=== PATIENT | female | born 1955 | race Caucasian/White ===

== ENCOUNTER 2017-04-01 12:04 | Emergency (ER) | payer OTHER ==
[2017-04-01 12:19] VITALS: BP 115/61
--- NOTE | 2017-04-01 12:44 | UC ---
Dental HPI - HPI Summary HPI Summary: right lower dental pain 2nd molar, for 2 days this morning pain is radiating into ear and has a sensation of vertigo with movement with movement - History of Current Complaint Chief Complaint: UCDentalProblem Stated Complaint: DENTAL PAIN Time Seen by Provider: 04/01/17 12:36 Hx Obtained From: Patient ?: No Onset/Duration: Sudden Onset, Lasting Days - 2, Worse Since - this morning Severity: Severe Pain Intensity: 8 Pain Scale Used: 0-10 Numeric Aggravating: Nothing Alleviating: Nothing - has tried aleve without relief Related History: Previous Dental Care on Same Tooth - Allergies/Home Medications Allergies/Adverse Reactions: Allergies Allergy/AdvReac Type Severity Reaction Status Date / Time Penicillins Allergy Intermediate migraine Verified 04/01/17 12:19 Acetaminophen [From Percocet] Allergy Mild migraine Verified 04/01/17 12:19 Oxycodone [From Percocet] Allergy Mild migraine Verified 04/01/17 12:19 Sumatriptan [From Imitrex] Allergy Mild migraine Verified 04/01/17 12:19 Venlafaxine [From Effexor] AdvReac Intermediate Nausea Verified 04/01/17 12:19 PMH/Surg Hx/FS Hx/Imm Hx Previously Healthy: Yes Endocrine History: Dyslipidemia Psychological History: Depression Other Psychological History: insomnia - Surgical History Surgical History: Yes Surgery Procedure, Year, and Place: ovary removed 2007 - Family History Known Family History: Positive: None - Social History Occupation: Employed Full-time Lives: With Family Alcohol Use: Occasionally Substance Use Type: None Smoking Status (MU): Former Smoker When Did the Patient Quit Smoking/Using Tobacco: quit 8 years ago Review of Systems Constitutional: Negative Skin: Negative Eyes: Negative ENT: Negative, Dental Pain - right lower 2nd molar pain, Ear Ache - right Respiratory: Negative Cardiovascular: Negative Gastrointestinal: Negative Genitourinary: Negative Motor: Negative Neurovascular: Negative Musculoskeletal: Negative Neurological: Negative Psychological: Negative All Other Systems Reviewed And Are Negative: Yes Physical Exam Triage Information Reviewed: Yes Appearance: Well-Appearing, No Pain Distress, Well-Nourished Vital Signs: Initial Vital Signs Temp 98.9 F 04/01/17 12:15 Pulse 76 04/01/17 12:15 Resp 18 04/01/17 12:15 BP 115/61 04/01/17 12:15 Pulse Ox 99 04/01/17 12:15 Vital Signs Reviewed: Yes Eye Exam: Normal Eyes: Positive: Conjunctiva Clear ENT Exam: Normal ENT: Positive: Normal ENT inspection, Hearing grossly normal, Pharynx normal, TMs normal. Negative: Nasal congestion, Nasal drainage, Trismus, Muffled/ hoarse voice Dental Exam: Normal Dental: Positive: Percussion Tenderness @ - 2nd molar right lower side of mouth Neck exam: Normal Neck: Positive: Supple, Nontender, No Lymphadenopathy Respiratory Exam: Normal Respiratory: Positive: Chest non-tender, Lungs clear, Normal breath sounds, No respiratory distress, No accessory muscle use Cardiovascular Exam: Normal Cardiovascular: Positive: RRR, No Murmur, Pulses Normal, Brisk Capillary Refill Musculoskeletal Exam: Normal Musculoskeletal: Positive: Strength Intact, ROM Intact, No Edema Neurological Exam: Normal Neurological: Positive: Alert, Muscle Tone Normal Psychological Exam: Normal Skin Exam: Normal Dental Complaint Course/Dx - Course Course Of Treatment: antibiodic, pain med, antivert follow with Dr. Crandall and dentisit this week - Differential Dx/Diagnosis Differential Diagnosis/Dx: Dental Abscess, Dental Caries, Odontogenic Pain Provider Diagnoses: dental abscess right lower jaw, BPPV Discharge - Discharge Plan Condition: Stable Disposition: HOME Prescriptions: Clindamycin Cap(NF) [Clindamycin Cap 300 mg Cap(NF)] 300 mg PO Q6H #28 cap Hydrocodone-Acetaminophen [Hydrocodone/Acetaminophen 5-325 mg] 1 tab PO Q6H PRN #16 tab MDD 4 PRN Reason: Pain Meclizine TAB* [Antivert 12.5 TAB*] 25 mg PO TID PRN #15 tab PRN Reason: Vertigo Patient Education Materials: Vertigo (ED), Dental Abscess (ED) Referrals: Jordan Crandall MD [Primary Care Provider] - 3 Days Additional Instructions: Follow with dentist this week
== END 2017-04-01 13:02 | disposition home or self-care (01) ==
LOC: UCEAST 12:04
DX: K04.7 Periapical abscess without sinus (principal); H81.10 Benign paroxysmal vertigo, unspecified ear; E78.5 Hyperlipidemia, unspecified; F32.9 Major depressive disorder, single episode, unspecified; G47.00 Insomnia, unspecified; Z88.6 Allergy status to analgesic agent; Z88.5 Allergy status to narcotic agent; Z88.0 Allergy status to penicillin; Z87.891 Personal history of nicotine dependence
CPT/HCPCS: 99212; G0463

== ENCOUNTER 2018-04-27 15:38 | Emergency (ER) | payer OTHER ==
[2018-04-27] MEDS ORDERED: PROCHLORPERAZINE INJ 5 MG/ML 2 ML VIAL IV ONE (17:09)
[2018-04-27] MEDS ORDERED: NS 0.9% 1000 ML* 1,000 ML IV ONE (17:09)
[2018-04-27] MEDS ORDERED: diPHENhydraMINE IV* 50 MG/ML 1 ml VIAL (BENADRYL) IV ONE (17:09)
[2018-04-27] MEDS ORDERED: Magnesium Sulfate 2 GM IV* 2 GM/50 ML BAG IVPB ONE (17:09)
[2018-04-27] MEDS ORDERED: Ketorolac INJ* 30 MG/ML 1 ML VIAL IV PUSH ONE (17:09)
[2018-04-27] MEDS ORDERED: Dexamethasone IV* 4 MG/ML 1 ML (4 MG) IV SLOW PU ONE (17:10)
[2018-04-27] MEDS ORDERED: Dexamethasone IV* 4 MG/ML 1 ML (4 MG) ONE (17:28)
--- NOTE | 2018-04-27 19:47 | ED ---
Headache - HPI Summary HPI Summary: The pt is 62 y/o female presenting to the [facility] with a chief complaint of DUMONT. The headache is reported to be on the right side. She describes a hx of migraines during the initial exam and states recently she has had 17 to 18 migraines. She also states that she has been receiving botox shots for 2 years. Pt reports of nausea along with the current headache symptoms. Pt denies double vision, blurry vision, fevers, chills, neck pain, back pain, SOB, sore throat, chest pain, abd pain, burning urination, rash, hematuria, and swelling at any extremity. The patient rates the pain 10/10 in severity. Symptoms aggravated by bright lights Symptoms alleviated by nothing. - History Of Current Complaint Chief Complaint: EDHeadache Stated Complaint: HEADACHE Hx Obtained From: Patient Onset/Duration: Gradual Onset, Still Present Initially Headache Was: Initial Pain Scale(0-10)= - 10 Timing: Constant Character: Migraine Location of Headache: Other: - Right side Aggravating Factor: Bright Lights Allevating Factors: Nothing Associated Signs And Symptoms: Nausea - Allergies/Home Medications Allergies/Adverse Reactions: Allergies Allergy/AdvReac Type Severity Reaction Status Date / Time oxycodone Allergy Headache Verified 04/27/18 15:53 Penicillins Allergy Headache Verified 04/27/18 15:53 sumatriptan Allergy Headache Verified 04/27/18 15:53 venlafaxine Allergy Nausea Verified 04/27/18 15:53 PMH/Surg Hx/FS Hx/Imm Hx Endocrine/Hematology History: Denies: Hx Diabetes Cardiovascular History: Denies: Hx Congestive Heart Failure, Hx Hypertension GI History: Reports: Other GI Disorders - hx of constipation Sensory History: Reports: Hx Contacts or Glasses Opthamlomology History: Reports: Hx Contacts or Glasses Neurological History: Reports: Hx Headaches, Hx Migraine Psychiatric History: Reports: Hx Depression - Surgical History Surgery Procedure, Year, and Place: ovary removed 2007 Hx Anesthesia Reactions: No Infectious Disease History: No Infectious Disease History: Denies: Traveled Outside the [place] in Last 30 Days - Family History Known Family History: Positive: Cardiac Disease Family History: Reviewed and noncontributory - Social History Alcohol Use: Occasionally Substance Use Type: Reports: None Smoking Status (MU): Former Smoker Review of Systems Negative: Fever, Chills Eyes: Other - Negative double vision Negative: Blurred Vision Negative: Sore Throat, Ear Ache Negative: Chest Pain Negative: Shortness Of Breath Positive: Nausea. Negative: Abdominal Pain, Vomiting Positive: no symptoms reported. Negative: burning, hematuria Musculoskeletal: Other - Negative back pain and negative neck pain Negative: Edema Negative: Rash Positive: Headache Psychological: Normal All Other Systems Reviewed And Are Negative: No Physical Exam - Summary Physical Exam Summary: Appearance: Alert, conversive, nontoxic appearing Skin: Warm, dry, no mottling, no rashes, no contusions HEENT: EOMI, PERRL, moist mucous membranes Neck: No masses on the neck, supple Respiratory: Clear to auscultation, breath sounds present, no rales, no rhonchi , no wheezes Cardiovascular: RRR, pulses are symmetrical in both lower and upper extremities Abdomen: Soft, non-tender Bowel Sounds: Present Musculoskeletal: No CVA tenderness, no obvious deformity, moving all extremities in a grossly normal manner Neurological: Photophobic, mild distress secondary to headache Psychiatric: Normal affect and mood Triage Information Reviewed: Yes Vital Signs On Initial Exam: Initial Vitals Temp Pulse Resp BP Pulse Ox 98.1 F 75 20 144/60 96 04/27/18 15:48 04/27/18 15:48 04/27/18 15:48 04/27/18 15:48 04/27/18 15:48 Vital Signs Reviewed: Yes Diagnostics - Vital Signs Vital Signs Temp Pulse Resp BP Pulse Ox 04/27/18 18:49 59 139/59 98 04/27/18 18:00 60 94 04/27/18 17:00 66 95 04/27/18 16:48 70 99 04/27/18 15:48 98.1 F 75 20 144/60 96 - Laboratory Lab Statement: Any lab studies that have been ordered have been reviewed, and results considered in the medical decision making process. Headache Course/Dx - Course Course Of Treatment: The pt is a 62 y/o female with a chief complaint of DUMONT. Pt has a hx of mirgraines and has been receiving botox shots. Upon initial examination, the pt's room was dark and there was a towel over her face in order to prevent aggravation by bright lights. Repeat examination showed benign findings. Pt's condition improved in repeat examination. The pt will be discharged home with a dx of migraines. - Diagnoses Provider Diagnoses: Migraine Discharge - Sign-Out/Discharge Documenting (check all that apply): Patient Departure - Discharge Home - Discharge Plan Condition: Stable Disposition: HOME Patient Education Materials: Migraine Headache (ED) Referrals: Jordan Crandall MD [Primary Care Provider] - Additional Instructions: Please follow up with your primary care physician. return if worse or any new symptoms. Take all medications as previously instructed. - Billing Disposition and Condition Condition: STABLE Disposition: Home - Attestation Statements Document Initiated by Scribe: Yes Documenting Scribe: Kasi Collier Provider For Whom Linetteibe is Documenting (Include Credential): Karrie Salas MD Scribe Attestation: Kasi Thao, scribed for Karrie Salas MD on 04/27/18 at 2054. Scribe Documentation Reviewed: Yes Provider Attestation: The documentation as recorded by the Kasi taylor accurately reflects the service I personally performed and the decisions made by Karrie singer MD
[2018-04-27 19:56] VITALS: BP 144/64
== END 2018-04-27 19:55 | disposition home or self-care (01) ==
LOC: ED 15:38
DX: G43.909 Migraine, unspecified, not intractable, without status migrainosus (principal); Z87.891 Personal history of nicotine dependence; Z88.5 Allergy status to narcotic agent; Z88.0 Allergy status to penicillin; Z88.8 Allergy status to other drugs, medicaments and biological substances
CPT/HCPCS: 96361; 96374; 96375; 99282; J0780; J1100; J1200; J1885; J3475

== ENCOUNTER 2019-04-06 07:34 | Emergency (ER) | payer OTHER ==
[2019-04-06 07:58] VITALS: BP 134/61
--- NOTE | 2019-04-06 08:08 | UC ---
FLU HPI - HPI Summary HPI Summary: 63 y/o female presents to the urgent care c/o nasl congestion w/ yellowish moderate nasal discharge and PND since 04/02/2019 of last week. She has low grade fever at the beginning of symptoms. Yesterday she developed body aches all over w/ chills , joint pain and DUMONT. Pain is 8/10 all over her body. She has a rash in both posterior thighs w/ itchiness. She reports all summer she was working in [place] out in the [place] and probably had a tick bite. She is concerned w/ Lyme. She has Hx of Migraine DUMONT. Pt denies SOB, cough, dizziness, chest pain, abdominal pain, N/V/D, Hx of STD's or vaginal discharge. - History of Current Complaint Chief Complaint: UCGeneralIllness Stated Complaint: BODYACHES Time Seen by Provider: 04/06/19 08:07 Hx Obtained From: Patient Onset/Duration: Gradual Onset, Lasting Weeks - 1.5 week, Worse Since - yesterday w/ body aches Severity Currently: Mild Severity Initially: Moderate Pain Intensity: 8 - body aches Pain Scale Used: 0-10 Numeric Associated Signs & Symptoms: Positive: Fever - the first day of cold symptoms about 1.5 weeks ago, Myalgia, Nasal Congestion - yellowish discharge, Headache - sinus pain. Negative: Cough, Sore Throat, Diarrhea - Risk Factors Influenza Risk Factors: Negative - Allergy/Home Medications Allergies/Adverse Reactions: Allergies Allergy/AdvReac Type Severity Reaction Status Date / Time oxycodone Allergy Headache Verified 04/06/19 07:57 Penicillins Allergy Headache Verified 04/06/19 07:57 sumatriptan Allergy Headache Verified 04/06/19 07:57 venlafaxine Allergy Nausea Verified 04/06/19 07:57 Home Medications: Home Medications Linaclotide [Linzess] 2 cap PO DAILY 04/06/19 [History Confirmed 04/06/19] Tizanidine HCl 4 mg PO Q6HR PRN 04/06/19 [History Confirmed 04/06/19] Tramadol HCl 1 tab PO Q6HR PRN 04/06/19 [History Confirmed 04/06/19] PMH/Surg Hx/FS Hx/Imm Hx Previously Healthy: Yes Endocrine History: Dyslipidemia Neurological History: Migraine Psychological History: Depression - Surgical History Surgical History: Yes Surgery Procedure, Year, and Place: ovary removed 2007 - Family History Known Family History: Positive: Cardiac Disease, Diabetes Family History: Reviewed and noncontributory - Social History Occupation: Employed Full-time Lives: With Family Alcohol Use: Occasionally Substance Use Type: None Smoking Status (MU): Former Smoker When Did the Patient Quit Smoking/Using Tobacco: quit 8 years ago Review of Systems All Other Systems Reviewed And Are Negative: Yes Constitutional: Positive: Chills, Fatigue, Other - body aches Skin: Positive: Rash - in both posterior thighs Eyes: Positive: Negative ENT: Positive: Nasal Discharge - yellowish, Sinus Congestion, Sinus Pain/ Tenderness, Other - moderate yellowish PND. Negative: Sore Throat, Ear Ache Respiratory: Positive: Negative Cardiovascular: Positive: Negative Gastrointestinal: Positive: Negative Genitourinary: Positive: Negative Motor: Positive: Negative Neurovascular: Positive: Negative Musculoskeletal: Positive: Arthralgia, Myalgia Neurological: Positive: Headache - sinus DUMONT Psychological: Positive: Negative Is Patient Immunocompromised?: No Physical Exam - Summary Physical Exam Summary: VITAL SIGNS: Reviewed. GENERAL: Patient is a well developed and nourished obese female who is sitting comfortably in the examining table. Patient is not in any acute respiratory distress. HEAD AND FACE: No signs of trauma. No ecchymosis, hematomas or skull depressions. positive maxillary and frontal sinus tenderness on percussion. EYES: PERRLA, EOMI x 2, No injected conjunctiva, no nystagmus. No photophobia. EARS: Hearing grossly intact. Ear canals and tympanic membranes are within normal limits. MOUTH: Positive pharynx with mild erythema, no exudates, no B/L tonsillar enlargement , no exudate. Uvula in midline. edematous nasal mucosa w/ yellowish nasal discharge, moderate yellowish PND NECK: Supple, trachea is midline, Positive anterior cervical lymphadenopathy, no JVD, no carotid bruit, no c-spine tenderness, neck with full ROM. No meningeal signs, no Kernig's or brudzinskis signs. CHEST: Symmetric, no tenderness at palpation LUNGS: Clear to auscultation bilaterally. No wheezing or crackles. CVS: Regular rate and rhythm, S1 and S2 present, no murmurs or gallops appreciated. ABDOMEN: Soft, non-tender. No signs of distention. No rebound no guarding, and no masses palpated. Bowel sounds are normal. EXTREMITIES: FROM in all major joints, no edema, no cyanosis or clubbing. NEURO: Alert and oriented x 3. No acute neurological deficits. Pt follows commands. SKIN: Dry and warm. positive scattered erythematous papules in the posterior both thighs, no tenderness to palpation, no drainage, no swelling observed, sign of excoriation observed Triage Information Reviewed: Yes Vital Signs: Initial Vital Signs Temp 97.6 F 04/06/19 07:47 Pulse 75 04/06/19 07:47 Resp 18 04/06/19 07:47 BP 134/61 04/06/19 07:47 Pulse Ox 98 04/06/19 07:47 Flu Course/Dx - Course Course Of Treatment: 63 y/o female presents to the urgent care c/o nasl congestion w/ yellowish moderate nasal discharge and PND since 04/02/2019 of last week. She has low grade fever at the beginning of symptoms. Yesterday she developed body aches all over w/ chills , joint pain and DUMONT. Pain is 8/10 all over her body. She has a rash in both posterior thighs w/ itchiness. She reports all summer she was working in [place] out in the [place] and probably had a tick bite. She is concerned w/ Lyme. She has Hx of Migraine DUMONT. Pt denies SOB, cough, dizziness, chest pain, abdominal pain, N/V/D, Hx of STD's or vaginal discharge. Hx obtained. Pt is hemodynamically stable, A&OX3, w/ possible bacterial sinusitis and a papular erythematous eruption on both posterior thigh on examination. Rapid Influeza A&B : negative. UA: Leukoesteraces 2+. Pt's rash possible contact dermatitis and will Rx Triamcinolone topical cream as directed below. Chest X-ray ordered: no active cardiolpulmonary disease observed, negative as per radiologist. Urine culture, Lyme serology, CBC and CMP ordered and sent to lab. Pt will be notified of any abnormality for further management. Pt PCN allergic. Pt will be Tx w/ Doxycycline PO and flonase nasal spray to alleviate sinusitis. Advised to rest, eat well and increase hydration and continue taken Tramadol and tizanidine PO for her myalgia and to f/u w/ her PCP for further management if not improvement of symptoms. Discharge instructions explained to Pt. Pt understood and agreed with plan of care. Pt left clinic hemodynamically stable, A&OX3 - Differential Dx/Diagnosis Differential Diagnosis/HQI/PQRI: Bronchitis, Influenza, Pneumonia, Upper Respiratory Infection, Other - LYME Provider Diagnosis: Acute bacterial sinusitis, Myalgia, Rash and nonspecific skin eruption Discharge ED - Sign-Out/Discharge Documenting (check all that apply): Patient Departure - D/C home All imaging exams completed and their final reports reviewed: Yes - Discharge Plan Condition: Stable Disposition: HOME Prescriptions: DOXYcycline CAP(*) [DOXYcycline 100MG CAP(*)] 100 mg PO BID #20 cap Fluticasone NASAL SPRAY 50MCG* [Flonase NASAL SPRAY 50MCG*] 2 spray BOTH NARES DAILY #1 btl Triamcinolone 0.1% CREAM(NF) [Kenalog Cream 0.1%(NF)] 1 applic TOPICAL BID #1 tube Patient Education Materials: Sinusitis (ED), Acute Rash (ED), Musculoskeletal Pain (ED) Forms: *Work Release Referrals: Jordan Crandall MD [Primary Care Provider] - 3 Days Additional Instructions: 1- Please increase fluid intake and rest. take full course of Doxycycline antibiotics to avoid resistance. Take yogurts w/ probiotics or Culturelle to protect your GI system 2-Use Flonase as directed to help drain fluid. Also buy saline drops to clear sinuses 3-Continue taking Tramadole and Tizanadine PO for muskuloskeletal pain to alleviate your pain 4- Urine was sent for culture and Lyme Seroloy, CBC and CMP sent to lab. You will be notified of any abnormality for further management. However, Please f/ u w/ your PCP in 2-3 days if symptoms do not improvement or worsen for further management and treatment - Billing Disposition and Condition Condition: STABLE Disposition: Home - Attestation Statements Provider Attestation: Per institutional requirements, I have reviewed the chart, however, I was not consulted specifically or made aware of this patient by the midlevel provider. I did not personally evaluate, interact with , or disposition this patient.
[2019-04-06 08:46] LABS: Influenza A Molecular NEGATIVE (Negative); Influenza B Molecular NEGATIVE (Negative)
[2019-04-06] MEDS ORDERED: Ibuprofen TAB* 600 MG PO ONE (08:50)
[2019-04-06 11:52] LABS: ABS Basophils 0.1 10^3/ul (0-0.2); ABS Eosinophils 0.1 10^3/ul (0-0.6); ABS Lymphocytes 1.5 10^3/ul (1.0-4.8); ABS Monocytes 0.6 10^3/ul (0-0.8); ABS Neutrophils 5.3 10^3/ul (1.5-7.7); Eosinophil % 1.8 %; Hematocrit 36 % (35-47); Hemoglobin 12.3 g/dL (12.0-16.0); Lymphocyte % 20.2 %; Mean Corpuscular HGB Conc 35 g/dL (31-36); Mean Corpuscular Hemoglobin 29 pg (27-31); Mean Corpuscular Volume 85 fL (80-97); Mean Platelet Volume 7.4 fL (7.4-10.4); Platelet Count 348 10^3/uL (150-450); Red Blood Count 4.22 10^6 /uL (3.70-4.87); Red Cell Distribution Width 14 % (10-15); White Blood Count 7.6 10^3/uL (3.5-10.8)
[2019-04-06 12:43] LABS: Albumin 4.5 g/dL (3.2-5.2); Calcium 9.5 mg/dL (8.6-10.3); Potassium 4.5 mmol/L (3.5-5.0); Total Bilirubin 0.7 mg/dL (0.2-1.0)
[2019-04-06 12:49] LABS: Albumin/Globulin Ratio 1.6 (1-3); BUN/Creatinine Ratio 27.5 (8-20); EGFR Non-African American 85.9 (>60); Globulin 2.9 g/dL (2-4); Total Protein 7.4 g/dL (6.4-8.9)
--- NOTE | 2019-04-07 10:37 | UC ---
- Progress Note Progress Note: RN to call pt. Labwork not emergent, but f/u as recommended with Dr. Crandall, for clinical recheck and review of labs including increased blood glucose and increased alk phosphatase. Course/Dx - Diagnoses Provider Diagnoses: Acute bacterial sinusitis, Myalgia, Rash and nonspecific skin eruption Discharge ED - Sign-Out/Discharge Documenting (check all that apply): Post-Discharge Follow Up All imaging exams completed and their final reports reviewed: Yes - Discharge Plan Condition: Stable Disposition: HOME Prescriptions: DOXYcycline CAP(*) [DOXYcycline 100MG CAP(*)] 100 mg PO BID #20 cap Fluticasone NASAL SPRAY 50MCG* [Flonase NASAL SPRAY 50MCG*] 2 spray BOTH NARES DAILY #1 btl Triamcinolone 0.1% CREAM(NF) [Kenalog Cream 0.1%(NF)] 1 applic TOPICAL BID #1 tube Patient Education Materials: Sinusitis (ED), Acute Rash (ED), Musculoskeletal Pain (ED) Forms: *Work Release Referrals: Jordan Crandall MD [Primary Care Provider] - 3 Days Additional Instructions: 1- Please increase fluid intake and rest. take full course of Doxycycline antibiotics to avoid resistance. Take yogurts w/ probiotics or Culturelle to protect your GI system 2-Use Flonase as directed to help drain fluid. Also buy saline drops to clear sinuses 3-Continue taking Tramadole and Tizanadine PO for muskuloskeletal pain to alleviate your pain 4- Urine was sent for culture and Lyme Seroloy, CBC and CMP sent to lab. You will be notified of any abnormality for further management. However, Please f/ u w/ your PCP in 2-3 days if symptoms do not improvement or worsen for further management and treatment - Billing Disposition and Condition Condition: STABLE Disposition: Home
--- NOTE | 2019-04-07 15:17 | UC ---
- Progress Note Progress Note: Lyme screen positive. She is currently on Doxycycline for 10 days - will extend this 11 days more for a total of 21 days BID. Will further direct treatment when confirmatory western blot testing returns in a few more days Course/Dx - Diagnoses Provider Diagnoses: Acute bacterial sinusitis, Myalgia, Rash and nonspecific skin eruption Discharge ED - Sign-Out/Discharge Documenting (check all that apply): Post-Discharge Follow Up All imaging exams completed and their final reports reviewed: Yes - Discharge Plan Condition: Stable Disposition: HOME Prescriptions: DOXYcycline CAP(*) [DOXYcycline 100MG CAP(*)] 100 mg PO BID #20 cap DOXYcycline CAP(*) [DOXYcycline 100MG CAP(*)] 100 mg PO BID 11 Days #22 cap Fluticasone NASAL SPRAY 50MCG* [Flonase NASAL SPRAY 50MCG*] 2 spray BOTH NARES DAILY #1 btl Triamcinolone 0.1% CREAM(NF) [Kenalog Cream 0.1%(NF)] 1 applic TOPICAL BID #1 tube Patient Education Materials: Sinusitis (ED), Acute Rash (ED), Musculoskeletal Pain (ED) Forms: *Work Release Referrals: Jordan Crandall MD [Primary Care Provider] - 3 Days Additional Instructions: 1- Please increase fluid intake and rest. take full course of Doxycycline antibiotics to avoid resistance. Take yogurts w/ probiotics or Culturelle to protect your GI system 2-Use Flonase as directed to help drain fluid. Also buy saline drops to clear sinuses 3-Continue taking Tramadole and Tizanadine PO for muskuloskeletal pain to alleviate your pain 4- Urine was sent for culture and Lyme Seroloy, CBC and CMP sent to lab. You will be notified of any abnormality for further management. However, Please f/ u w/ your PCP in 2-3 days if symptoms do not improvement or worsen for further management and treatment - Billing Disposition and Condition Condition: STABLE Disposition: Home
== END 2019-04-06 09:38 | disposition home or self-care (01) ==
LOC: UCEAST 07:34
DX: J01.80 Other acute sinusitis (principal); B96.89 Other specified bacterial agents as the cause of diseases classified elsewhere; R21 Rash and other nonspecific skin eruption; M79.10 Myalgia, unspecified site; E78.5 Hyperlipidemia, unspecified; F32.9 Major depressive disorder, single episode, unspecified; Z87.891 Personal history of nicotine dependence; Z88.5 Allergy status to narcotic agent; Z88.0 Allergy status to penicillin
CPT/HCPCS: 36415; 71046; 80053; 81003; 85025; 86617; 86618; 87086; 99212; A9270-GY; G0463